=== PATIENT | female | born 1995 | race Two or more races ===

== ENCOUNTER 2025-06-08 03:01 | Emergency (ER) | payer OTHER, SELFPAY ==
--- NOTE | ~2025-06-08 | CT_ITS ---
CLINICAL HISTORY: found unresponsive in street CT cervical spine without contrast Comparison: None provided Findings: Normal vertebral body alignment. No significant degenerative change. No acute fractures or dislocations. No acute findings on limited view of the intracranial contents. Soft tissues of the neck are normal. Lung apices are clear. IMPRESSION: No acute findings. This document has been electronically signed by: Devi Kim MD on 06/08/2025 06:10:19
--- NOTE | ~2025-06-08 | CT_ITS ---
CLINICAL HISTORY: found unresponsive in street CT head without contrast Comparison: None provided Findings: No intra-axial mass, midline shift, hydrocephalus, or acute hemorrhage. Posterior left scalp laceration and hematoma. No significant atrophy-like change or white matter disease. There is no sinus or mastoid fluid. The orbits are within normal limits. No skull fracture. IMPRESSION: 1. Left posterior scalp laceration and hematoma. No acute intracranial hemorrhage or skull fracture. This document has been electronically signed by: Devi Kim MD on 06/08/2025 06:03:18
[2025-06-08 03:09] VITALS: BP 100/64; BP 95/60; PULSE 78; PULSE 98; RESP 16; O2SAT 98; BMI 26.8
--- NOTE | 2025-06-08 03:11 | ED.ALCOHOL ---
HPI - Alcohol General Chief Complaint: ETOH/Substance Use Stated Complaint: Fall, Headstrike, ETOH Time Seen by Provider: 06/08/25 03:03 Source: EMS Mode of arrival: EMS Limitations: other History of Present Illness ED Provider: Dr. Jackie Manzo HPI narrative: Patient comes to the emergency room via ambulance from [facility] in [place]. According to EMS, the patient was found by people unresponsive in between cars in front of a bar. Patient was C collared and brought to emergency room. On arrival, patient opens her eyes when we called her name. Patient too intoxicated to give any significant history. Related Data Previous Rx's ?Medication ?Instructions ?Recorded acetaminophen 500 mg tablet 500 mg PO Q6H PRN pain #20 tabs 06/08/25 Allergies Allergy/AdvReac Type Severity Reaction Status Date / Time pork derived (porcine) (PORK Allergy Mild HIVES Verified 06/08/25 03:10 DERIVED (PORCINE)) Review of Systems Review of Systems: Yes Other (Intoxicated) FORMERLY [facility] Social History Social History Advance Directives: No Advance Directives Information Provided: Yes Do you have a plan to hurt others: No Plan Physical Exam ED Exam Exam: Appearance: Somnolent, opens her eyes when we called her name, goes back to sleep Eyes: Pupils equal, round and reactive to light. ENT: Pharynx normal. Neck: Normal inspection. Neck supple. No lymph nodes noted. No crepitus CVS: Normal heart rate and rhythm. Pulses normal. Normal S1 and S2 Respiratory: No respiratory distress. Breath sounds normal. No Wheezing. No rales Abdomen: Soft and nontender. No rigidity. No distention. Skin: Skin warm and dry. Normal skin color. Normal skin turgor. Patient has an ecchymosis on the left side on occipital side of the head Extremities: No lower extremity edema. No Lacerations. No Rash Neuro: To be intoxicated to participating cranial nerve assessment Psych: Calm, intoxicated Vital Signs: Vital Signs - 24 hr 06/08/25 03:09 Pulse Rate 78 Respiratory Rate 16 Blood Pressure 95/60 Pulse Oximetry 98 Oxygen Delivery Method Room Air BMI result Body Mass Index 26.8 Medical Decision Making Medical Decision Making MDM Narrative: My interpretation of labs: No significant abnormality patient's hematology, patient's white blood cell count 11.4, likely reactive leukocytosis. Chemistry shows a potassium of 3.0, repleted p.o. ETOH 255 CT scan of the head does not show any intracranial abnormality, patient has a hematoma in the scalp There is a small laceration, approximately 7 mm, 2 yossi were applied. Patient was given the option to use lidocaine versus not, patient opted to do it without like Differential Diagnosis Differential Diagnoses: The differential diagnosis associated with the presentation includes (Hematoma in the scalp, contusion, concussion, intracranial bleed, cervical spine injury) Admission/Observation Consideration of admission/observation: Escalation of care including admission/observation considered (Patient's initial presentation and unclear history, observation/admission was considered) Lab Data MDM Lab Attestation statement: I reviewed the patient's lab results. 06/08/25 03:15 06/08/25 03:15 Labs: Lab Results 06/08/25 Range/Units 03:15 WBC 11.4 H (4.8-10.8) X10*3/uL RBC 4.19 L (4.20-5.50) X10*6/uL Hgb 12.1 (12.0-16.0) g/dl Hct 36.4 L (37.0-47.0) % MCV 86.9 (80.0-98.0) fL MCH 28.9 (27.0-33.0) pg MCHC 33.2 (31.0-35.0) g/dl RDW 12.2 (11.0-16.0) % Plt Count 331 (160-400) X10*3/uL MPV 9.5 (9.4-12.3) fL Immature Gran % (Auto) 0.4 (0.0-0.4) % Neut % (Auto) 46.7 (45-73) % Lymph % (Auto) 45.6 H (20-40) % [place] % (Auto) 5.0 (2-11) % Eos % (Auto) 1.3 (0-4) % Baso % (Auto) 1.0 (0-2) % Lymph # (Auto) 5.2 H (1.2-4.9) X10*3/uL [place] # (Auto) 0.6 (0.1-1.2) X10*3/uL Eos # (Auto) 0.2 (0.0-0.4) X10*3/uL Baso # (Auto) 0.1 (0.0-0.2) X10*3/uL Abs Immat Gran (auto) 0.04 H (0.00-0.03) X10*3/uL Absolute Neuts (auto) 5.3 (2.0-8.3) x10*3/uL Absolute Nucleated RBC 0.000 (0.0-0.012) X10*3/uL Nucleated RBC % (auto) 0.0 (0.0-0.2) /100WBC Smear Tech's Comments VERIFIED Sodium 142 (135-145) mmol/L Potassium 3.0 L (3.3-5.1) mmol/L Chloride 108 (96-108) mmol/L Carbon Dioxide 22 (22-29) mmol/L Anion Gap 15 (12-20) BUN 14 (9-16) mg/dL Creatinine 0.83 (0.5-1.4) mg/dL Estim Creat Clear Calc 105.6 Estimated GFR > 60 Random Glucose 158 H (60-115) mg/dL Calcium 8.4 (8.4-10.2) mg/dL Total Bilirubin 0.2 (0.0-1.0) mg/dL Direct Bilirubin < 0.2 (0.0-0.5) mg/dL AST 28 (5-31) U/L ALT 24 (0-31) U/L Alkaline Phosphatase 64 (39-117) U/L Total Protein 7.3 (6.5-8.0) g/dL Albumin 4.4 (3.5-5.0) g/dL Beta HCG, Quant < 2 mIU/mL Ethyl Alcohol 255 mg/dL Independent Interpretation I performed an independent interpretation of an: CT Scan Radiology Impression Discussion of test interpretation with radiology: I have reviewed the radiologist's reading. Radiologist Impression: No intra-axial mass, midline shift, hydrocephalus, or acute hemorrhage. Posterior left scalp laceration and hematoma. No significant atrophy-like change or white matter disease. There is no sinus or mastoid fluid. The orbits are within normal limits. No skull fracture. IMPRESSION: 1. Left posterior scalp laceration and hematoma. No acute intracranial hemorrhage or skull fracture. Medications Administered Discontinued Medications Generic Name Dose Route Start Last Admin Trade Name Freq PRN Reason Stop Dose Admin Sodium Chloride 1,000 mls @ 999 mls/hr 06/08/25 03:30 06/08/25 05:32 Ns IVCONT 06/08/25 04:30 Infused .Q1H1M ONE Infusion Ondansetron HCl 4 mg 06/08/25 04:01 06/08/25 04:05 Ondansetron Hcl 4 Mg/2 Ml Vial IVPUSH 06/08/25 04:02 4 mg ONCE ONE Administration Procedures Laceration Laceration 1: Site: scalp Size (cm): 0.7 Description: linear Depth: simple, single layer Skin layer closed with: yossi Number of sutures: 2 Critical Care Time Critical Care Time Critical Care Time: Yes Total Critical Care Time: 35 Attestation: I have personally provided critical care time. Time includes review of lab data, radiology results, discussion with consultants, and monitoring for potential decompensation. Intervention performed as documented. Discharge Plan Discharge Clinical Impression: Alcoholic intoxication, Laceration of scalp, Acute hypokalemia Patient Disposition: Home, Self-Care Instructions: Laceration (ED), Potassium Content of Foods List (ED), Hypokalemia (ED), Abuse of Alcohol (ED), Staple Care (ED) Additional Instructions: Your yossi need to be removed in 7-10 days. Please follow-up with your primary care physician tomorrow. If you have any worsening or new symptoms, please return to the emergency room or call 911 Prescriptions: New acetaminophen 500 mg tablet 500 mg PO Q6H PRN (Reason: pain) Qty: 20 0RF Print Language: Zambian
[2025-06-08 03:19] LABS: Hematocrit 36.4 % (37.0-47.0); Hemoglobin 12.1 g/dl (12.0-16.0); Imm Gran Abs Auto 0.04 X10*3/uL (0.00-0.03); Imm Gran Pct Auto 0.4 % (0.0-0.4); Lymphocytes Absolute Auto 5.2 X10*3/uL (1.2-4.9); MANUAL DIFF FLAG SCAN; Mean Corpuscular HGB Conc 33.2 g/dl (31.0-35.0); Mean Corpuscular Hemoglobin 28.9 pg (27.0-33.0); Mean Corpuscular Volume 86.9 fL (80.0-98.0); NRBC Abs Auto 0.000 X10*3/uL (0.0-0.012); NRBC Pct Auto 0.0 /100WBC (0.0-0.2); Platelet Count 331 X10*3/uL (160-400); Red Blood Count 4.19 X10*6/uL (4.20-5.50); SCAN SMEAR FLAG 1; White Blood Count 11.4 X10*3/uL (4.8-10.8)
[2025-06-08 03:39] LABS: Alanine Aminotransferase 24 U/L (0-31); Albumin Level 4.4 g/dL (3.5-5.0); Alkaline Phosphatase 64 U/L (39-117); Anion Gap 15 (12-20); Aspartate Amino Transferase 28 U/L (5-31); Blood Urea Nitrogen 14 mg/dL (9-16); Calcium 8.4 mg/dL (8.4-10.2); Carbon Dioxide 22 mmol/L (22-29); Chloride 108 mmol/L (96-108); Creatinine Clr Calc Pharmacy 105.6; Estimated Glomerular Filt Rate > 60; Potassium 3.0 mmol/L (3.3-5.1); Sodium 142 mmol/L (135-145); Total Protein 7.3 g/dL (6.5-8.0)
--- NOTE | 2025-06-08 03:43 | PC.NURSE ---
this RN assumed care of this pt @approximately this time, pt noted to be laying semi espinosa's in the stretcher, connected to cardiac and SPO2 monitoring, HR, RR, and SPO2 noted to be 89, 18, 100RA, pt has C-collar placed via EMS. Pt pending CT scan, provider assessed at the bedside, IV line placed, blood work obtained and sent to the lab, [facility] [place]. Pt appears to be in no apparent / respiratory distress
[2025-06-08] MEDS: Potassium Chloride Packet 20 MEQ PACKET 60 MEQ PO (06:59)
[2025-06-08 07:04] VITALS: BP 113/74; PULSE 104; RESP 20; O2SAT 97
[2025-06-08 07:09] VITALS: BP 113/74; PULSE 104; RESP 20; TEMP 36.1; O2SAT 97
== END 2025-06-08 07:29 | disposition home or self-care (01) ==
PROVIDERS: Emergency Provider Emergency Medicine; PCP Internal Medicine
DX: S01.01XA Laceration without foreign body of scalp, initial encounter (principal); R51.9 Headache, unspecified; F10.129 Alcohol abuse with intoxication, unspecified; E87.6 Hypokalemia; R40.4 Transient alteration of awareness; R11.0 Nausea; Y90.8 Blood alcohol level of 240 mg/100 ml or more; X58.XXXA Exposure to other specified factors, initial encounter; Y93.9 Activity, unspecified; Y92.9 Unspecified place or not applicable; Y99.8 Other external cause status; Z51.81 Encounter for therapeutic drug level monitoring; Z79.899 Other long term (current) drug therapy
CPT/HCPCS: 36415; 70450; 72125; 80048; 80076; 80307; 84702; 85025; 96361; 96374; 99283; 99284; J2405

== ENCOUNTER → 2025-06-08 03:10 | Outpatient (BNV) | payer OTHER, SELFPAY | PROVIDERS: Emergency Provider Emergency Medicine; PCP Internal Medicine; Visit Provider Radiology Diagnostic Radiology | DX: Z03.89 Encounter for observation for other suspected diseases and conditions ruled out (principal); S01.01XA Laceration without foreign body of scalp, initial encounter | CPT/HCPCS: 70450; 72125 ==